=== PATIENT | female | born 1985 | race Hispanic/Latino ===

== ENCOUNTER 2018-03-20 22:03 | Emergency (ER) | payer MEDICAID ==
[2018-03-20 22:54] LABS: BASOPHILS % (AUTO) 1.7 % (0.0-5.0); EOSINOPHILS % (AUTO) 4.7 % (0.0-8.0); HEMATOCRIT 36.8 % (36-48); MEAN CORPUSCULAR HEMOGLOBIN 32.7 pg (27.0-33.0); MEAN CORPUSCULAR HGB CONC 33.3 g/dL (32.0-36.0); MEAN CORPUSCULAR VOLUME 98.2 fL (79-99); MONOCYTES % (AUTO) 9.4 % (3.0-13.0); NEUTROPHILS % (AUTO) 62.2 % (40.0-77.0); PLATELET COUNT (AUTO) 329 K/uL (130-400); RED BLOOD CELL COUNT(AUTO) 3.75 MIL/uL (4.00-5.50); RED CELL DISTRIBUTION WIDTH 12.6 % (11.0-15.5); WHITE BLOOD COUNT (AUTO) 7.3 K/uL (4.8-10.8)
[2018-03-20 22:58] LABS: APPEARANCE,URINE Clear (CLEAR); BILIRUBIN,URINE Negative (NEGATIVE); COLOR,URINE Yellow (YELLOW); GLUCOSE, URINE (UA) Negative (NEGATIVE); KETONES,URINE Negative (NEGATIVE); LEUKOCYTE ESTERASE ,URINE Trace (NEGATIVE); NITRATE,URINE Negative (NEGATIVE); OCCULT BLOOD,URINE Moderate (NEGATIVE); PH,URINE 7.5 (5.0-8.0); PROTEIN,URINE Negative (NEGATIVE); UROBILINOGEN,URINE 0.2 mg/dL (0.2-1.0)
[2018-03-20 23:01] LABS: CREATININE 0.6 mg/dL (0.5-1.5); POTASSIUM 3.6 mmol/L (3.5-5.1)
[2018-03-20 23:15] LABS: BACTERIA,URINE Few /HPF (None Seen); RBC,URINE 0-1 /HPF (0-1)
== END 2018-03-21 00:47 | disposition home or self-care (01) ==
LOC: EDH 22:03
DX: O02.1 Missed abortion (principal); Z3A.14 14 weeks gestation of pregnancy; Z79.899 Other long term (current) drug therapy
CPT/HCPCS: 36415; 76801; 76817; 80048; 81001; 84702; 85025; 86900; 86901

== ENCOUNTER 2020-01-16 09:49 | Observation (INO) | payer MEDICAID ==
[~2020-01-16] VITALS: Ht 167.6 cm; Wt 97.5 kg
[2020-01-16 10:21] LABS: APPEARANCE,URINE Clear (CLEAR); BILIRUBIN,URINE Negative (NEGATIVE); COLOR,URINE Yellow (YELLOW); GLUCOSE, URINE (UA) Negative (NEGATIVE); KETONES,URINE Negative (NEGATIVE); LEUKOCYTE ESTERASE ,URINE Negative (NEGATIVE); NITRATE,URINE Negative (NEGATIVE); OCCULT BLOOD,URINE Negative (NEGATIVE); PH,URINE 7.5 (5.0-8.0); PROTEIN,URINE Negative (NEGATIVE)
[2020-01-16] MEDS ORDERED: LACTATED RINGERS 1000ML IV SCH (11:15)
== END 2020-01-16 12:20 | disposition home or self-care (01) ==
LOC: EDH 09:49 → LDH 09:50
PROVIDERS: ADMIT Specialist; ATTEND Specialist
DX: O62.9 Abnormality of forces of labor, unspecified (principal); Z3A.39 39 weeks gestation of pregnancy
CPT/HCPCS: 81003; 96360; 99284; G0378 ×2; J7120

== ENCOUNTER 2020-01-18 09:38 | Inpatient (IN) | payer MEDICAID ==
[~2020-01-18] VITALS: Ht 167.6 cm; Wt 98.9 kg
[2020-01-18] MEDS ORDERED: LACTATED RINGERS 1000ML 1,000 ML IV ONE (09:54)
[2020-01-18 10:16] LABS: APPEARANCE,URINE Cloudy (CLEAR); BILIRUBIN,URINE Negative (NEGATIVE); COLOR,URINE Yellow (YELLOW); GLUCOSE, URINE (UA) Negative (NEGATIVE); KETONES,URINE Trace mg/dL (NEGATIVE); LEUKOCYTE ESTERASE ,URINE Large (NEGATIVE); NITRATE,URINE Negative (NEGATIVE); OCCULT BLOOD,URINE Moderate (NEGATIVE); PH,URINE 8.5 (5.0-8.0); PROTEIN,URINE Trace mg/dL (NEGATIVE); UROBILINOGEN,URINE 0.2 mg/dL (0.2-1.0)
[2020-01-18 10:26] LABS: BACTERIA,URINE Moderate /HPF (None Seen); RBC,URINE 0-1 /HPF (0-1); SQUAMOUS EPITHELIAL CELL,UR Few /HPF (0-2)
[2020-01-18] MEDS ORDERED: LACTATED RINGERS 1000ML 1,000 ML IV PRN (10:30)
[2020-01-18 10:51] LABS: MEAN CORPUSCULAR HEMOGLOBIN 33.9 pg (27.0-33.0); MEAN CORPUSCULAR HGB CONC 35.3 g/dL (32.0-36.0); RED BLOOD CELL COUNT(AUTO) 3.75 MIL/uL (4.00-5.50); WHITE BLOOD COUNT (AUTO) 21.1 K/uL (4.8-10.8)
[2020-01-18] MEDS ORDERED: OXYTOCIN 10 USP UNITS/ML 20 UNIT in LACTATED RINGERS 1000ML 1,000 ML IV SCH (11:15)
[2020-01-18] MEDS ORDERED: OXYTOCIN-LR 20 UNITS/1000 ML 1,000 ML IV ONE ×2 (11:59→16:23)
[2020-01-18] MEDS ORDERED: MEPERIDINE-PF 50 MG/ML SYG IVP PRN (13:15)
[2020-01-18] MEDS ORDERED: PROMETHAZINE HCL 25 MG/ML 1ML AMPULE IM PRN ×2 (13:15→17:45)
[2020-01-18] MEDS ORDERED: LIDOCAINE HCL 1% 20 ML VIAL ONE (14:41)
[2020-01-18] MEDS ORDERED: CEFAZOLIN SODIUM 1 GM VIAL ONE (15:49)
[2020-01-18] MEDS ORDERED: CEFAZOLIN SODIUM 1 GM VIAL IVP PRN (16:15)
[2020-01-18] MEDS ORDERED: LACTATED RINGERS 1000ML 1,000 ML IV SCH (16:15)
[2020-01-18] MEDS ORDERED: DURAMORPH PF1 MG/ML 10ML AMP IV ONE (16:25)
[2020-01-18] MEDS ORDERED: FENTANYL CITRATE PF 50 MCG/1 ML 2ML VIAL ONE (16:25)
[2020-01-18] MEDS ORDERED: CEFAZOLIN SODIUM 1 GM VIAL IVP ONE (16:42)
[2020-01-18] MEDS ORDERED: MEPERIDINE-PF 50 MG/ML SYG ONE (17:00)
[2020-01-18] MEDS ORDERED: ONDANSETRON HCL 4 MG/2 ML VIAL ONE (17:00)
[2020-01-18] MEDS ORDERED: PHENYLEPHRINE HCL 10 MG/ML 1ML VIAL IV ONE (17:19)
[2020-01-18] MEDS ORDERED: DEXTROSE 5 %-0.45 % NACL 1,000 ML IV PRN (17:45)
[2020-01-18] MEDS ORDERED: OXYTOCIN-LR 20 UNITS/1000 ML 1,000 ML IV PRN (17:45)
[2020-01-18] MEDS ORDERED: SODIUM CHLORIDE 0.9% 10 ML VIAL IVP PRN (17:45)
[2020-01-18] MEDS ORDERED: MEPERIDINE-PF 75 MG/ML SYG IM PRN (17:45)
[2020-01-18] MEDS: ZOSYN 3.375GM+NS 50ML 50 ML IV SCH (18:35)
[2020-01-18 19:45] VITALS: BP 103/68
[2020-01-18] MEDS: DOCUSATE SODIUM 100 MG CAP PO SCH (21:00)
[2020-01-18 21:39] VITALS: BP 109/58
[2020-01-18] MEDS ORDERED: PREN-154 PO (22:10)
[2020-01-19] VITALS (7 sets, daily range): BP systolic 96–123; BP diastolic 52–79
[2020-01-19] MEDS: ZOSYN 3.375GM+NS 50ML 50 ML IV SCH ×3 (02:04→17:50)
--- NOTE | 2020-01-19 06:30 | NUR ---
DIONNA TIPTON. PT. INST TO CALL FOR ASSIST BEFORE GETTING OUT OF BED TO BR, VERBALIZED UNDERSTANDING. Addendum: 01/19/20 at 0645 by KENNEDY SANCHEZ RN RN Amended: Links added.
[2020-01-19 06:35] LABS: HEMATOCRIT 28.6 % (36-48); MEAN CORPUSCULAR HEMOGLOBIN 33.8 pg (27.0-33.0); MEAN CORPUSCULAR HGB CONC 34.3 g/dL (32.0-36.0); MEAN CORPUSCULAR VOLUME 98.6 fL (79-99); RED BLOOD CELL COUNT(AUTO) 2.9 MIL/uL (4.00-5.50); RED CELL DISTRIBUTION WIDTH 14.4 % (11.0-15.5); WHITE BLOOD COUNT (AUTO) 21.3 K/uL (4.8-10.8)
[2020-01-19] MEDS: MEASLES/MUMPS/RUBELLA VACCINE, LIVE 0.5 ML/VIAL SQ SCH ×2 (07:39→07:43)
--- NOTE | 2020-01-19 08:20 | NUR ---
ASSESSMENT DONE AND PERICARE DONE ON PATIENT. ASSISTED PATIENT TO CHAIR AFTER TAKING INCISIONAL DRESSING OFF AND NOTING INCISION HAS NO DRAINAGE AND IS ASYMPTOMATIC. TOLERATED ACTIVITY WELL. IV INFUSING WELL AND NO EDEMA, REDNESS OR LEAKAGE NOTED TO SITE. D5 1/2NS INFUSING AT 150CC/HR.
[2020-01-19] MEDS: DOCUSATE SODIUM 100 MG CAP PO SCH ×2 (09:36→21:06)
[2020-01-19] MEDS: SIMETHICONE 80 MG TAB.CHEW PO PRN ×3 (09:36→21:06)
[2020-01-19] MEDS: DIPH,PERTUSS(ACELL),TET VAC/PF 0.5 ML VIAL IM SCH (09:37)
[2020-01-19 12:10] LABS: HEPATITIS Bs ANTIGEN SCREEN P Negative (Negative)
--- NOTE | 2020-01-19 14:00 | NUR ---
ATTEMPTED TO GIVEN PATIENT MYLICON AND PATIENT WAS STILL IN NURSERY VISITING WITH BABY. PATIENT TOLERATED ACTIVITY WELL AND AMBULATED WITH SPOUSE TO NURSERY AND UPON RETURN WAS ADMINISTERED MYLICON. STATES NOT PASSING GAS.
[2020-01-19] MEDS ORDERED: BISACODYL 10 MG SUPP.RECT RC PRN (14:45)
[2020-01-19] MEDS ORDERED: ACETAMINOPHEN EXTRA STRENGTH 500 MG TABLET PO PRN (14:45)
[2020-01-19] MEDS ORDERED: HYDROCODONE/ACETAMINOPHEN 5/325 MG TAB PO PRN (14:45)
--- NOTE | 2020-01-19 16:00 | NUR ---
VITAL SIGNS DONE AFTER QUIET TIME AND PATIENT HAS TEMP OF 99.3. PATIENT ENCOURAGED TO AMBULATE AND DRINK FLUIDS. PIV IS PATENT AND WILL CONTINUE TO ANTIBIOTICS. PATIENT ALSO STATES HAVE SOME DISCOMFORT BUT REFUSED NARCOTICS AND INDICATED WOULD WAIT FOR MOTRIN 800MGS AT 1745. PATIENT WENT TO NURSERY TO VISIT WITH BABY AND DISTRACT SELF.
--- NOTE | 2020-01-19 17:00 | NUR ---
PATIENT STILL IN NURSERY VISITING WITH BABY.
[2020-01-19] MEDS: IBUPROFEN 800 MG TAB PO SCH (17:53)
--- NOTE | 2020-01-19 20:00 | NUR ---
STATUS AMBULATING TO NSY, NO CONCERNS VOICED Addendum: 01/19/20 at 2219 by NURA TAPIA LVN Amended: Links added.
[2020-01-19] MEDS: ACETAMINOPHEN-CODEINE 300/30MG TAB PO PRN (23:55)
[2020-01-20] MEDS: ZOSYN 3.375GM+NS 50ML 50 ML IV SCH ×2 (01:55→09:04)
[2020-01-20] MEDS: IBUPROFEN 800 MG TAB PO SCH ×3 (02:04→17:04)
[2020-01-20 04:10] VITALS: BP 94/60
[2020-01-20 07:35] VITALS: BP 109/67
[2020-01-20] MEDS: DIPH,PERTUSS(ACELL),TET VAC/PF 0.5 ML VIAL IM SCH (08:00)
[2020-01-20] MEDS: SIMETHICONE 80 MG TAB.CHEW PO PRN ×2 (09:04→17:04)
[2020-01-20] MEDS: DOCUSATE SODIUM 100 MG CAP PO SCH (09:04)
--- NOTE | 2020-01-20 09:10 | NUR ---
ASSESSMENT DONE AND MEDICATIONS GIVEN AT THIS TIME. ZOSYN HUNG AND PATIENT INDICATED WANTING TO GO FEED BABY IN NURSERY. VITAL SIGNS HAVE BEEN STABLE AND NO FEVERS. PIV IS PATENT AND INFUSING ZOSYN WELL. IBUPROFEN GIVEN TO PATIENT AFTER BREAKFAST.
--- NOTE | 2020-01-20 11:45 | NUR ---
PATIENT WENT TO NURSERY TO FEED AND VARGHESE WITH BABY. HAS BEEN STABLE AND AMBULATING BETWEEN HER ROOM ASND NURSERY. DENIES ANY DIZZINESS WITH AMBULATION.
[2020-01-20 12:00] VITALS: BP 110/70
--- NOTE | 2020-01-20 13:59 | NUR ---
PATIENT STILL IN NURSERY WITH BABY.
[2020-01-20] MEDS: ACETAMINOPHEN-CODEINE 300/30MG TAB PO PRN (14:25)
--- NOTE | 2020-01-20 14:30 | NUR ---
PATIENT BACK FROM NURSERY AND STATES WANTING TO TAKE A SHOWER. ZOSYN COMPLETED AND PIV REMOVED SINCE PATIENT IS TO BE DISCHARGED AFTER 1800. PIV REMOVED AND IV SITE WNL. STATES HAVING INCISIONAL PAIN AND REQUESTED TYLENOL #3 SHE REFUSED TO TAKE EARLIER. TYLENOL #3 GIVEN AND MYLICON FOR GAS DISCOMFORT. TOWELS AND SOCKS ISSUED AND INDICATED WANTING TO CHANGE INTO HER OWN CLOTHES.
[2020-01-20 16:15] VITALS: BP 115/72
--- NOTE | 2020-01-20 16:30 | NUR ---
DISCHARGE INSTRUCTIONS GIVEN WHILE PATIENT WAITS ON BABY TO BE DISCHARGED AFTER CULTURE RESULTS ARE OBTAIN ON BABY. PATENT STATES HAVING LITTLE DISCOMFORT AND WILL GIVE SCHEDULED MOTRIN FOR COMFORT AFTER DINNER. PATIENT OTHERWISE INDICATED UNDERSTANIDNG NEED TO SCHEDULE FOLLOW UP APPOINTMENT WITH DR. KENNEDY IN ONE WEEK AND WILL WAIT FOR DR. PAN TO COME AND WRITE SCRIPT FOR HOME PAIN MANAGEMENT. DOSAGE AND FREQUENCIES WERE DISCUSSED WITH PATIENT TO MEDS DR. PAN ORDERS AND VERBALIZED UNDERSTANDING DISCHARGE INSTRUCTIONS AND HAD NO QUESTIONS.
--- NOTE | 2020-01-20 17:15 | NUR ---
PATIENT WAS MOVED TO ROOM 112 TO WAIT ON BABY DISCHARGE. SCRIPT FOR PAIN MANAGEMENT OBTAINED FROM DR. PAN AND WAS GIVEN TO PATIENT. PATIENT WENT TO NURSERY TO FEED BABY. REPORT TO BE GIVEN TO L/D FOR DISCHARGE FROM THERE ONCE BABY IS DISCHARGED.
--- NOTE | 2020-01-20 17:30 | NUR ---
REPORT GIVEN TO TEETEE KENNEDY L/D AND PATIENT CARE TRANSFERED AT THIS TIME.
--- NOTE | 2020-01-20 19:09 | NUR ---
pt out with nb in arms via [facility]c to private car.
== END 2020-01-20 19:20 | disposition home or self-care (01) | DRG 540 ==
LOC: EDH 09:38 → UNDOADMOB 09:51 → LDH 09:51 → OBSVTOIN 10:30 → INTOOBSV 10:30 → LDH 21:25 → WSH 21:25
PROVIDERS: ADMIT Specialist; ATTEND Specialist
PROC: 10D00Z1 Extraction of Products of Conception, Low, Open Approach (ICD-10-PCS; principal; 2020-01-18 16:34)
PROC: 3E0234Z Introduction of Serum, Toxoid and Vaccine into Muscle, Percutaneous Approach (ICD-10-PCS; 2020-01-19)
PROC: 3E0134Z Introduction of Serum, Toxoid and Vaccine into Subcutaneous Tissue, Percutaneous Approach (ICD-10-PCS; 2020-01-19)
DX: O62.2 Other uterine inertia (principal); Z37.0 Single live birth; Z3A.40 40 weeks gestation of pregnancy; O69.81X0 Labor and delivery complicated by cord around neck, without compression, not applicable or unspecified; Z23 Encounter for immunization
CPT/HCPCS: 36415; 59510; 81001; 81003; 85027; 86592; 86850; 86900; 86901; 87070; 87076; 87088; 87340; 90707; 90715; 96360; A4344; G0378; J0690; J2175; J2274; J2370; J2405; J2543; J2550; J2590; J3010; J7120

== ENCOUNTER → 2020-02-22 | Outpatient (CLI) | payer MEDICAID ==
[~2020-02-22] MED LIST: PREN-154 PO
== END | disposition home or self-care (01) ==
LOC: RAH 08:14
PROVIDERS: ATTEND Internal Medicine
DX: R10.9 Unspecified abdominal pain (principal)
CPT/HCPCS: 76700